=== PATIENT | female | born 1995 | race Two or more races ===

== ENCOUNTER 2020-07-07 12:05 | Inpatient (IN) | payer OTHER ==
[~2020-07-07] VITALS: Ht 170.2 cm; Wt 92.5 kg
[2020-07-07] MEDS ORDERED: PRENATAL TABLE1 EAC1 PO (13:15)
[2020-07-07] MEDS ORDERED: VITAMIN C100 MG PO (13:16)
[2020-07-07] MEDS ORDERED: HIERRO (13:17)
[2020-07-07] MEDS ORDERED: ASPIRINA (13:17)
[2020-07-07] MEDS ORDERED: INTEGRA F CAPS1 EACH PO (16:08)
[2020-07-07] MEDS ORDERED: ST. JOSEPH ASPI81 M2 PO (16:08)
== END 2020-07-10 16:50 | disposition home or self-care (01) | DRG 788 ==
LOC: EDBD 12:05 → LDR 12:05 → SURG-SUITE 12:05
PROVIDERS: ADMIT Obstetrics & Gynecology; ATTEND Obstetrics & Gynecology
PROC: 4A1HXFZ Monitoring of Products of Conception, Cardiac Rhythm, External Approach (ICD-10-PCS; 2020-07-07)
PROC: 3E033VJ Introduction of Other Hormone into Peripheral Vein, Percutaneous Approach (ICD-10-PCS; 2020-07-07)
PROC: 10D00Z1 Extraction of Products of Conception, Low, Open Approach (ICD-10-PCS; principal; 2020-07-07 20:00)
DX: O42.02 Full-term premature rupture of membranes, onset of labor within 24 hours of rupture (principal); O61.0 Failed medical induction of labor; Z37.0 Single live birth; Z3A.38 38 weeks gestation of pregnancy; Z20.828 Contact with and (suspected) exposure to other viral communicable diseases

== ENCOUNTER 2022-11-24 08:15 | Inpatient (IN) | payer OTHER ==
[~2022-11-24] VITALS: Ht 170.2 cm; Wt 92.5 kg
[~2022-11-24 08:15] MED LIST: ASPIRINA; HIERRO; INTEGRA F CAPS1 EACH PO; PRENATAL TABLE1 EAC1 PO; ST. JOSEPH ASPI81 M2 PO; VITAMIN C100 MG PO
== END 2022-12-01 11:55 | disposition home or self-care (01) | DRG 788 ==
LOC: OB/GYN 11-28 05:25 → O/R 11-28 05:25 → OB/GYN 11-28 07:00
PROVIDERS: ADMIT Obstetrics & Gynecology; ATTEND Obstetrics & Gynecology
PROC: 4A1HXCZ Monitoring of Products of Conception, Cardiac Rate, External Approach (ICD-10-PCS; 2022-11-28)
PROC: 10D00Z1 Extraction of Products of Conception, Low, Open Approach (ICD-10-PCS; principal; 2022-11-28 09:25)
DX: O34.211 Maternal care for low transverse scar from previous cesarean delivery (principal); Z3A.39 39 weeks gestation of pregnancy; Z37.0 Single live birth; Z20.822 Contact with and (suspected) exposure to COVID-19

== ENCOUNTER 2025-03-10 20:53 | Emergency (ER) | payer OTHER ==
[~2025-03-10] VITALS: Ht 170.2 cm; Wt 90.7 kg
[2025-03-10] MEDS ORDERED: MILLIPRED5 MG (21:31)
[2025-03-10 22:12] LABS: BASO % 0.5 % (0.1-1.2); EOS # 0.17 (0.04-0.54); EOS % 1.3 % (0.7-7.0); HEMATOCRIT 35.2 % (34.1-44.9); HEMOGLOBIN 11.1 g/dL (11.2-15.7); LYMPH # 2.45 (1.18-3.74); LYMPH % 18.7 % (19.3-53.1); MEAN CORPUSCULAR HEMOGLOBIN 24.8 pg (25.6-32.2); MONO # 1.17 (0.24-0.82); MONO % 8.9 % (4.7-12.5); NEUT % 70.2 % (34.0-71.1); PLATELET COUNT 360 K/uL (163-369); RED BLOOD COUNT 4.47 M/uL (3.93-5.22); RED CELL DISTRIBUTION WIDTH 13.4 % (11.6-14.4)
[2025-03-10 22:33] LABS: INR 1.02; PARTIAL THROMBOPLASTIN TIME 28.1 SECONDS (22.0-34.0); PROTHROMBIN TIME 11.1 SECONDS (9.0-11.5)
[2025-03-10 22:43] LABS: ALBUMIN 3.6 gm/dL (3.4-5.0); ALKALINE PHOSPHATASE 73 U/L (50-136); ALT/SGPT 24 U/L (12-78); ANION GAP 11 (10.0-20.0); AST/SGOT 16 U/L (15-37); BILIRUBIN TOTAL 0.17 mg/dL (0.3-1.2); BLOOD UREA NITROGEN 10 mg/dL (7-18); BUN CREA RATIO 13 (7.0-25.0); CALCIUM 9.1 mg/dL (8.5-10.1); CARBON DIOXIDE 27 mEq/L (21-32); CHLORIDE 109 mmol/L (98-107); CREATININE SERUM 0.77 mg/dL (0.55-1.02); GFR 88.02; GLOBULINA 4.3 G/DL (2.4-3.5); GLUCOSE FASTING 85 mg/dL (65-100); OSMOLALITY SERUM 283 MOSM/KG (275-295); POTASSIUM 4.12 mEq/L (3.5-5.1); SODIUM 143 mmol/L (136-145); TOTAL PROTEIN 7.9 gm/dL (6.4-8.2)
[2025-03-10 22:44] LABS: HCG QUANTITATIVE < 1 mUI/mL (1-3)
[2025-03-11] MEDS ORDERED: CLINDAMYCIN PHOSPHATE 150 MG/ML (900mg) IV STA (00:58)
[2025-03-11] MEDS ORDERED: CLINDAMYCIN PHOSPHATE 150 MG/ML (900mg) ONE (01:15)
== END 2025-03-11 02:41 | disposition home or self-care (01) ==
LOC: ER 20:53
PROVIDERS: General Practice
DX: J03.80 Acute tonsillitis due to other specified organisms (principal); M32.8 Other forms of systemic lupus erythematosus; R59.0 Localized enlarged lymph nodes
CPT/HCPCS: 36415; 70491; Q9965

== ENCOUNTER 2025-05-24 18:28 | Emergency (ER) | payer OTHER ==
[~2025-05-24] VITALS: Ht 170.2 cm; Wt 93.0 kg
[~2025-05-24 18:28] MED LIST changes: +MILLIPRED5 MG
[2025-05-24] MEDS ORDERED: ONDANSETRON HCL 2 MG/ML VIAL IV ONE (20:15)
[2025-05-24] MEDS ORDERED: FAMOTIDINE/PF 20 MG/2 ML VIAL IV ONE (20:15)
[2025-05-24 21:11] LABS: BASO % 0.8 % (0.1-1.2); EOS # 0.09 (0.04-0.54); EOS % 0.8 % (0.7-7.0); LYMPH # 1.92 (1.18-3.74); LYMPH % 16.5 % (19.3-53.1); MEAN PLATELET VOLUME 10.10 fl (9.4-12.4); MONO # 0.81 (0.24-0.82); MONO % 7.0 % (4.7-12.5); NEUT # 8.70 (1.56-6.13); NEUT % 74.6 % (34.0-71.1); RED CELL DISTRIBUTION WIDTH 14.1 % (11.6-14.4)
[2025-05-24 21:13] LABS: URINE APPEARANCE Clear; URINE BILIRRUBIN Negative (NEGATIVE); URINE BLOOD Negative; URINE COLOR Yellow; URINE GLUCOSE Negative (NEGATIVE); URINE KETONE Negative (NEGATIVE); URINE LEUKOCYTE Negative; URINE NITRATE Negative; URINE PROTEIN Negative (NEGATIVE); URINE UROBILINOGEN 0.2 E.U./dl
[2025-05-24 21:18] LABS: URINE BACTERIA 173.9 uL (0.0-1933); URINE EPITHELIAL CELLS 4.6 uL (0.0-38.8); URINE WBC 6.3 uL (0.0-23.2)
[2025-05-24 21:39] LABS: COVID-19 AG NEGATIVE (NEGATIVE)
[2025-05-24 21:52] LABS: ALT/SGPT 22.0 U/L (12-78); AST/SGOT 8.0 U/L (15-37); BILIRUBIN TOTAL 0.29 mg/dL (0.3-1.2); BUN CREA RATIO 10.0 (7.0-25.0); CREATININE SERUM 0.59 mg/dL (0.55-1.02); GFR 119.68; GLOBULINA 4.0 G/DL (2.4-3.5); GLUCOSE FASTING 115.0 mg/dL (65-100); OSMOLALITY SERUM 274.0 MOSM/KG (275-295)
[2025-05-24 21:57] LABS: TYPE CELLS SQUAMOUS; URINE CAST 0.00 uL (0.0-1.40); URINE RBC 1.0 uL (0.0-20.8)
== END 2025-05-24 22:31 | disposition home or self-care (01) ==
LOC: ER 18:28
PROVIDERS: General Practice
DX: O26.899 Other specified pregnancy related conditions, unspecified trimester (principal); R42 Dizziness and giddiness; Z20.822 Contact with and (suspected) exposure to COVID-19; M32.8 Other forms of systemic lupus erythematosus